=== PATIENT | female | born 1985 ===

== ENCOUNTER 2017-12-04 14:42 | Emergency (ER) | payer BC ==
[2017-12-04 15:06] VITALS: BMI 35.9
[2017-12-04 15:12] VITALS: RESP 20; TEMP 92
--- NOTE | 2017-12-04 15:25 | C.PDOC ---
History Of Present Illness 32-year-old female, presents to the emergency department with complaints of right knee pain. Patient states she was at work today at [employer], sitting on a bar stool, when she fell and injured her right knee. She notes pain to area which is worse with walking. Denies any numbness/weakness, headache, dizziness. No neck injuries. Time Seen by Provider: 12/04/17 15:16 Chief Complaint (Nursing): Lower Extremity Problem/Injury History Per: Patient History/Exam Limitations: no limitations Current Symptoms Are (Timing): Still Present Past Medical History Reviewed: Historical Data, Nursing Documentation, Vital Signs Vital Signs: Last Vital Signs Temp 92 F L 12/04/17 15:12 Pulse 75 12/04/17 17:25 Resp 20 12/04/17 17:25 BP 123/72 12/04/17 17:25 Pulse Ox 98 12/04/17 17:25 - [facility] Procedures EPISIOTOMY (04/07/15) MONITORING NOS (04/07/15) Family History: States: No Known Family Hx - Social History Hx Alcohol Use: No Hx Substance Use: No - Immunization History Hx Tetanus Toxoid Vaccination: No Hx Influenza Vaccination: No Hx Pneumococcal Vaccination: No Review Of Systems Musculoskeletal: Positive for: Other (right knee pain). Negative for: Neck Pain Neurological: Negative for: Weakness, Numbness, Headache Physical Exam - Physical Exam Appears: Non-toxic, No Acute Distress, Other (morbidly obese) Skin: Normal Color, Warm, Dry, No Rash Head: Normacephalic Eye(s): bilateral: PERRL Nose: Normal Oral Mucosa: Moist Lips: Normal Appearing Neck: Normal ROM Extremity: Tenderness (mild tenderness to right knee. No deformity or swelling) , No Deformity, No Swelling Neurological/Psych: Oriented x3, Normal Speech ED Course And Treatment O2 Sat by Pulse Oximetry: 97 (RA) Pulse Ox Interpretation: Normal Medical Decision Making Medical Decision Making: Impression: R knee pain s/p fall Plan: * Motrin * XR R knee Xray showed no fracture or dislocation Sagar bandage applied. Patient given instructions on crutch training. Patient advised to rest, ice and take NSAID for pain as needed. Disposition Counseled Patient/Family Regarding: Diagnosis, Need For Followup, Rx Given - Disposition Referrals: Radha Enciso MD [Staff Provider] - Disposition: HOME/ ROUTINE Disposition Time: 16:53 Condition: GOOD Additional Instructions: Your xray was normal, no fracture. Please apply ice to area 15 minutes three times a day. Take Motrin as needed for pain every 6 hours, with food to not upset stomach. Follow up with orthopedic if pain persists over one week. Tu radiografa fue normal, sin fractura. Por favor aplique hielo en el marleny 15 minutos olya veces al da. Revillo Motrin cuando sea necesario para el dolor cada 6 horas, con alimentos para no alterar el estmago. Isidro un seguimiento con ortopedia si el dolor persiste jl maria t semana. Prescriptions: Ibuprofen [Motrin] 600 mg PO Q8 #30 tab Instructions: Contusion (DC) Forms: [facility] (Occitan), Work Excuse Print Language: MONEGASQUE - POA Present On Arrival: None - Clinical Impression Clinical Impression: Knee contusion - Scribe Statement The provider has reviewed the documentation as recorded by the Scribe (Samantha Mahajan) All medical record entries made by the Scribe were at my direction and personally dictated by me. I have reviewed the chart and agree that the record accurately reflects my personal performance of the history, physical exam, medical decision making, and the department course for this patient. I have also personally directed, reviewed, and agree with the discharge instructions and disposition.
--- NOTE | 2017-12-04 17:32 | RAD ---
PROCEDURE: Right Knee Radiographs. HISTORY: Status post fall with pain. COMPARISON: No prior study available for comparison FINDINGS: BONES: No evidence of acute displaced fracture nor dislocation. The osseous structures appear intact. There appears to be joint space narrowing on the AP projection however this may be due to poor patient positioning as the joint space does not appear significantly narrowed on the tunnel view. Tiny posterior patellar osteophyte formation. JOINTS: Normal. No osteoarthritis. JOINT EFFUSION: Evaluation for joint effusion is somewhat limited due to large body habitus however small joint effusion not excluded. OTHER FINDINGS: None. IMPRESSION: No definitive radiographic evidence of acute displaced fracture nor dislocation. Mild DJD. If symptoms persist or occult fracture suspected clinically consider followup CT scan
[2017-12-04 17:40] VITALS: BP 123/72; PULSE 75
[2017-12-04 18:29] VITALS: O2SAT 97
== END 2017-12-04 17:56 | disposition home or self-care (01) ==
LOC: C.ER 14:42
DX: S80.01XA Contusion of right knee, initial encounter (principal); W17.89XA Other fall from one level to another, initial encounter; Y92.89 Other specified places as the place of occurrence of the external cause; Y99.0 Civilian activity done for income or pay